=== PATIENT | female | born 1935 | race Caucasian/White ===

== ENCOUNTER → 2018-01-01 | Outpatient (CLI) | payer MEDICARE, OTHER ==
--- NOTE | 2018-01-01 09:03 | MR ---
EXAMINATION TYPE: MR brain wo con DATE OF EXAM: 01/01/2018 8:50 AM. COMPARISON: NONE. HISTORY: Sharp pain the base of the skull. Technique: Multiplanar, multiecho imaging of the brain was obtained without intravenous contrast. FINDINGS: There is a 12.8 x 7.3 x 8.6 mm lesion anterior to the medulla in the midline, extending sli ghtly towards the right. This does not appear vascular. This is high in signal on both T1 and T2-weig hted images. This lesion demonstrates restricted diffusion. Midline structures are otherwise unremarkable. There is a normal craniocervical junction. There are normal vascular flow voids. The orbits are normal. There is no evidence of a CP angle mass lesion. There is a combination of punctate and confluent periventricular white matter changes compatible with a combination of small vessel disease and chronic ischemic change. There is no mass effect, midline shift or intracranial blood. IMPRESSION: 1. 12.8 X 7.3 X 0.6 MM LESION ANTERIOR TO THE MEDULLA IN THE MIDLINE EXTENDING SLIGHTLY TOWARDS THE R IGHT. THIS IS OF QUESTIONABLE ETIOLOGY. 2. BOTH PUNCTATE AND CONFLUENT PERIVENTRICULAR WHITE MATTER CHANGE, LIKELY ON THE BASIS OF SMALL VESS EL DISEASE AND CHRONIC ISCHEMIC CHANGE. 3. POSTCONTRAST MRI OF THE BRAIN IS SUGGESTED.
== END | disposition home or self-care (01) ==
LOC: RADMRIMAIN 07:54
PROVIDERS: ATTEND Family Medicine
DX: G93.9 Disorder of brain, unspecified (principal); R90.82 White matter disease, unspecified
CPT/HCPCS: 70551

== ENCOUNTER → 2019-04-26 | Outpatient (CLI) | payer MEDICARE ==
[2019-04-26 16:11] LABS: HCT 45.8 % (34.0-46.0); HGB 14.9 gm/dL (11.4-16.0); MCH 29.7 pg (25.0-35.0); MCHC 32.5 g/dL (31.0-37.0); MCV 91.3 fL (80.0-100.0); Mean Platelet Volume 6.5; Platelet Count 318 k/uL (150-450); RBC 5.02 m/uL (3.80-5.40); RDW 13.1 % (11.5-15.5); WBC 9.1 k/uL (3.8-10.6)
[2019-04-27 00:15] LABS: African American GFR (CKD) 49.1 (60.0-200.0); Albumin 4.6 g/dL (3.80-4.90); Albumin/Globulin Ratio 1.84 (1.60-3.17); Anion Gap 12.7 mmol/L (4.00-12.00); BUN/Creat Ratio 30.83 Ratio (12.00-20.00); Calcium 9.9 mg/dL (8.7-10.3); Carbon Dioxide 21.3 mmol/L (21.6-31.8); Globulin 2.5 g/dL (1.6-3.3); Non-African American GFR(CKD) 42.3 (60.0-200.0); Potassium 4.1 mmol/L (3.5-5.5); Total Bilirubin 0.2 mg/dL (0.2-1.2); Total Protein 7.1 g/dL (6.2-8.2)
== END | disposition home or self-care (01) ==
LOC: LABWHC1 15:19
PROVIDERS: ATTEND Nurse Practitioner Adult Health
DX: I10 Essential (primary) hypertension (principal); R06.02 Shortness of breath; R53.83 Other fatigue
CPT/HCPCS: 36415; 80053; 85027

== ENCOUNTER 2020-04-15 09:01 | Observation (INO) | payer MEDICARE ==
[2020-04-15] MEDS ORDERED: SODIUM CHLORIDE 0.9% 500 ML 500 ML IV STA (09:40)
--- NOTE | 2020-04-15 09:54 | ED ---
General Adult HPI - General Chief complaint: Dizziness Stated complaint: Dizzy/weakness Time Seen by Provider: 04/15/20 09:05 Source: patient, RN notes reviewed, old records reviewed Mode of arrival: wheelchair Limitations: physical limitation - History of Present Illness Initial comments: This is an 84-year-old female who presents emergency Department with a complaint of near syncope. Patient states she woke up this morning felt very lightheaded and it definitely got worse with standing up so she sat down it made it a little bit better but didn't go away so she stood back up and she said definitely standing back up made it worse per patient states she was not dizzy or if she did not feel as though she or the room was spinning it was definitely more a feeling of she was going to pass out. Patient denies headache patient denies any numbness weakness. Patient denies any shortness of breath. Patient denies any palpitations. Patient denies any recent fever chills or cough. Patient states the last month or so she hasn't felt quite right but no specific complaint. Patient states she definitely felt normal yesterday. Patient denies any chest pain or abdominal pain. - Related Data Home Medications Medication Instructions Recorded Confirmed Atorvastatin [Lipitor] 80 mg PO HS 10/21/15 04/15/20 Levothyroxine Sodium [Synthroid] 112 mcg PO DAILY 10/21/15 04/15/20 Metoprolol Succinate (ER) [Toprol 25 mg PO BID 10/21/15 04/15/20 Xl] Multivit with Calcium,Iron,Min 1 tab PO DAILY 10/21/15 04/15/20 [Women's Daily Multivitamin] Olmesartan/Hydrochlorothiazide 1 tab PO DAILY 10/21/15 04/15/20 [Benicar Hct 40-25 mg Tablet] Oxybutynin Xl [Ditropan Xl] 5 mg PO DAILY 10/21/15 04/15/20 amLODIPine [Norvasc] 5 mg PO DAILY 10/21/15 04/15/20 buPROPion HCL [Wellbutrin XL] 300 mg PO DAILY 10/21/15 04/15/20 Ergocalciferol (Vitamin D2) 50,000 unit PO FR 04/15/20 04/15/20 [Drisdol] Mirtazapine [Remeron] 15 mg PO HS 04/15/20 04/15/20 Temazepam [Restoril] 15 mg PO HS 04/15/20 04/15/20 Vascepa 1 Gm Capsule 2 gm PO BID 04/15/20 04/15/20 Allergies Allergy/AdvReac Type Severity Reaction Status Date / Time Penicillins Allergy Rash/Hives Verified 04/15/20 10:18 Review of Systems ROS Statement: Those systems with pertinent positive or pertinent negative responses have been documented in the HPI. ROS Other: All systems not noted in ROS Statement are negative. Past Medical History Past Medical History: Coronary Artery Disease (CAD), Hyperlipidemia, Hypertension, Osteoarthritis (OA), Seizure Disorder, Thyroid Disorder Additional Past Medical History / Comment(s): Last seizure 25 yr ago, Hypoglycemic History of Any Multi-Drug Resistant Organisms: None Reported Past Surgical History: Section, Heart Catheterization With Stent, Joint Replacement Additional Past Surgical History / Comment(s): C/S x 2, right carotid enda rterectomy, TOTAL RIGHT KNEE Past Anesthesia/Blood Transfusion Reactions: No Reported Reaction Date of Last Stent Placement:: 2005 Past Psychological History: No Psychological Hx Reported Smoking Status: Never smoker Past Alcohol Use History: None Reported Past Drug Use History: None Reported - Past Family History Mother Family Medical History: No Reported History General Exam - General Exam Comments Initial Comments: GENERAL: Patient is well-developed and well-nourished. Patient is nontoxic and well- hydrated and is in mild distress. ENT: Neck is soft and supple. No significant lymphadenopathy is noted. Oropharynx is clear. Moist mucous membranes. Neck has full range of motion without eliciting any pain. EYES: The sclera were anicteric and conjunctiva were pink and moist. Extraocular movements were intact and pupils were equal round and reactive to light. Eyelids were unremarkable. PULMONARY: Unlabored respirations. Good breath sounds bilaterally. No audible rales rhonchi or wheezing was noted. CARDIOVASCULAR: There is a regular rate and rhythm without any murmurs gallops or rubs. ABDOMEN: Soft and nontender with normal bowel sounds. SKIN: Skin is clear with no lesions or rashes and otherwise unremarkable. NEUROLOGIC: Patient is alert and oriented x3. Cranial nerves II through XII are grossly intact. Motor and sensory are also intact. Normal speech, volume and content. Symmetrical smile. MUSCULOSKELETAL: Normal extremities with adequate strength and full range of motion. LYMPHATICS: No significant lymphadenopathy is noted PSYCHIATRIC: Normal psychiatric evaluation. Limitations: physical limitation Course Vital Signs 04/15/20 04/15/20 04/15/20 09:08 09:28 09:48 Temperature 98.3 F Pulse Rate 76 75 72 Pulse Rate [ Bingo Worker ] Respiratory 18 18 18 Rate Blood Pressure 201/113 202/103 177/94 Blood Pressure [Right Arm Sitting] Blood Pressure [Right Arm Standing] Blood Pressure [Right Arm Supine] O2 Sat by Pulse 97 98 97 Oximetry 04/15/20 04/15/20 04/15/20 09:49 09:50 10:53 Temperature Pulse Rate 70 Pulse Rate [ 73 76 Bingo Worker ] Respiratory 18 Rate Blood Pressure 155/64 Blood Pressure 188/100 [Right Arm Sitting] Blood Pressure 187/101 [Right Arm Standing] Blood Pressure 177/94 [Right Arm Supine] O2 Sat by Pulse 94 L Oximetry Medical Decision Making - Medical Decision Making EKG shows normal sinus rhythm at 73 bpm [place] interval is 182 QRS is 82 QT is 398 QTC is 438. EKG shows no ST segment elevation or depression. Chest x-ray shows no acute abnormality. Patient was feeling at her baseline while in bed which she did have significantly near syncopal episodes today and so I spoke with Dr. Narayan and he was in agreement with bringing the patient and having her see cardiology. - Lab Data Result diagrams: 04/15/20 09:24 04/15/20 09:24 Lab Results 04/15/20 04/15/20 04/15/20 Range/Units 09:24 09:24 09:24 WBC 7.7 (3.8-10.6) k/uL RBC 4.93 (3.80-5.40) m/uL Hgb 14.6 (11.4-16.0) gm/dL Hct 44.6 (34.0-46.0) % MCV 90.5 (80.0-100.0) fL MCH 29.7 (25.0-35.0) pg MCHC 32.8 (31.0-37.0) g/dL RDW 12.9 (11.5-15.5) % Plt Count 288 (150-450) k/uL Neutrophils % 67 % Lymphocytes % 21 % Monocytes % 6 % Eosinophils % 3 % Basophils % 1 % Neutrophils # 5.2 (1.3-7.7) k/uL Lymphocytes # 1.6 (1.0-4.8) k/uL Monocytes # 0.5 (0-1.0) k/uL Eosinophils # 0.2 (0-0.7) k/uL Basophils # 0.1 (0-0.2) k/uL PT 9.7 (9.0-12.0) sec INR 0.9 (<1.2) APTT 24.1 (22.0-30.0) sec Sodium 136 L (137-145) mmol/L Potassium 4.9 (3.5-5.1) mmol/L Chloride 102 (98-107) mmol/L Carbon Dioxide 25 (22-30) mmol/L Anion Gap 9 mmol/L BUN 31 H (7-17) mg/dL Creatinine 1.08 H (0.52-1.04) mg/dL Est GFR (CKD-EPI)AfAm 55 (>60 ml/min/1.73 sqM) Est GFR (CKD-EPI)NonAf 48 (>60 ml/min/1.73 sqM) Glucose 134 H (74-99) mg/dL Plasma Lactic Acid Nikolay (0.7-2.0) mmol/L Calcium 9.7 (8.4-10.2) mg/dL Magnesium (1.6-2.3) mg/dL Total Bilirubin 0.8 (0.2-1.3) mg/dL AST 49 H (14-36) U/L ALT 33 (4-34) U/L Alkaline Phosphatase 107 (38-126) U/L Troponin I (0.000-0.034) ng/mL Total Protein 8.4 H (6.3-8.2) g/dL Albumin 4.8 (3.5-5.0) g/dL Urine Color Urine Appearance (Clear) Urine pH (5.0-8.0) Ur Specific [place] (1.001-1.035) Urine Protein (Negative) Urine Glucose (UA) (Negative) Urine Ketones (Negative) Urine Blood (Negative) Urine Nitrite (Negative) Urine Bilirubin (Negative) Urine Urobilinogen (<2.0) mg/dL Ur Leukocyte Esterase (Negative) Urine WBC (0-5) /hpf Urine Bacteria (None) /hpf 07/20/20 07/20/20 07/20/20 Range/Units 09:24 09:24 09:43 WBC (3.8-10.6) k/uL RBC (3.80-5.40) m/uL Hgb (11.4-16.0) gm/dL Hct (34.0-46.0) % MCV (80.0-100.0) fL MCH (25.0-35.0) pg MCHC (31.0-37.0) g/dL RDW (11.5-15.5) % Plt Count (150-450) k/uL Neutrophils % % Lymphocytes % % Monocytes % % Eosinophils % % Basophils % % Neutrophils # (1.3-7.7) k/uL Lymphocytes # (1.0-4.8) k/uL Monocytes # (0-1.0) k/uL Eosinophils # (0-0.7) k/uL Basophils # (0-0.2) k/uL PT (9.0-12.0) sec INR (<1.2) APTT (22.0-30.0) sec Sodium (137-145) mmol/L Potassium (3.5-5.1) mmol/L Chloride (98-107) mmol/L Carbon Dioxide (22-30) mmol/L Anion Gap mmol/L BUN (7-17) mg/dL Creatinine (0.52-1.04) mg/dL Est GFR (CKD-EPI)AfAm (>60 ml/min/1.73 sqM) Est GFR (CKD-EPI)NonAf (>60 ml/min/1.73 sqM) Glucose (74-99) mg/dL Plasma Lactic Acid Nikolay (0.7-2.0) mmol/L Calcium (8.4-10.2) mg/dL Magnesium 2.0 (1.6-2.3) mg/dL Total Bilirubin (0.2-1.3) mg/dL AST (14-36) U/L ALT (4-34) U/L Alkaline Phosphatase (38-126) U/L Troponin I <0.012 (0.000-0.034) ng/mL Total Protein (6.3-8.2) g/dL Albumin (3.5-5.0) g/dL Urine Color Yellow Urine Appearance Clear (Clear) Urine pH 6.0 (5.0-8.0) Ur Specific [place] 1.010 (1.001-1.035) Urine Protein Trace H (Negative) Urine Glucose (UA) Negative (Negative) Urine Ketones Negative (Negative) Urine Blood Negative (Negative) Urine Nitrite Negative (Negative) Urine Bilirubin Negative (Negative) Urine Urobilinogen <2.0 (<2.0) mg/dL Ur Leukocyte Esterase Moderate H (Negative) Urine WBC 6 H (0-5) /hpf Urine Bacteria Rare H (None) /hpf 04/15/20 Range/Units 09:47 WBC (3.8-10.6) k/uL RBC (3.80-5.40) m/uL Hgb (11.4-16.0) gm/dL Hct (34.0-46.0) % MCV (80.0-100.0) fL MCH (25.0-35.0) pg MCHC (31.0-37.0) g/dL RDW (11.5-15.5) % Plt Count (150-450) k/uL Neutrophils % % Lymphocytes % % Monocytes % % Eosinophils % % Basophils % % Neutrophils # (1.3-7.7) k/uL Lymphocytes # (1.0-4.8) k/uL Monocytes # (0-1.0) k/uL Eosinophils # (0-0.7) k/uL Basophils # (0-0.2) k/uL PT (9.0-12.0) sec INR (<1.2) APTT (22.0-30.0) sec Sodium (137-145) mmol/L Potassium (3.5-5.1) mmol/L Chloride (98-107) mmol/L Carbon Dioxide (22-30) mmol/L Anion Gap mmol/L BUN (7-17) mg/dL Creatinine (0.52-1.04) mg/dL Est GFR (CKD-EPI)AfAm (>60 ml/min/1.73 sqM) Est GFR (CKD-EPI)NonAf (>60 ml/min/1.73 sqM) Glucose (74-99) mg/dL Plasma Lactic Acid Nikolay 1.3 (0.7-2.0) mmol/L Calcium (8.4-10.2) mg/dL Magnesium (1.6-2.3) mg/dL Total Bilirubin (0.2-1.3) mg/dL AST (14-36) U/L ALT (4-34) U/L Alkaline Phosphatase (38-126) U/L Troponin I (0.000-0.034) ng/mL Total Protein (6.3-8.2) g/dL Albumin (3.5-5.0) g/dL Urine Color Urine Appearance (Clear) Urine pH (5.0-8.0) Ur Specific [place] (1.001-1.035) Urine Protein (Negative) Urine Glucose (UA) (Negative) Urine Ketones (Negative) Urine Blood (Negative) Urine Nitrite (Negative) Urine Bilirubin (Negative) Urine Urobilinogen (<2.0) mg/dL Ur Leukocyte Esterase (Negative) Urine WBC (0-5) /hpf Urine Bacteria (None) /hpf Disposition Clinical Impression: Near syncope Disposition: ADMITTED IP TO THIS HOSP Referrals: Shreyas Narayan DO [Primary Care Provider] - 1-2 days Time of Disposition: 11:44
[2020-04-15 09:57] LABS: Basophils # (A) 0.1 k/uL (0-0.2); Basophils % (A) 1 %; Eosinophils # (A) 0.2 k/uL (0-0.7); Eosinophils % (A) 3 %; HCT 44.6 % (34.0-46.0); HGB 14.6 gm/dL (11.4-16.0); Lymphocytes # (A) 1.6 k/uL (1.0-4.8); Lymphocytes % (A) 21 %; MCH 29.7 pg (25.0-35.0); MCHC 32.8 g/dL (31.0-37.0); MCV 90.5 fL (80.0-100.0); Mean Platelet Volume 7.6; Monocytes # (A) 0.5 k/uL (0-1.0); Monocytes % (A) 6 %; Neutrophils # (A) 5.2 k/uL (1.3-7.7); Neutrophils % (A) 67 %; Platelet Count 288 k/uL (150-450); RBC 4.93 m/uL (3.80-5.40); RDW 12.9 % (11.5-15.5); WBC 7.7 k/uL (3.8-10.6)
[2020-04-15 10:09] LABS: Calcium 9.7 mg/dL (8.4-10.2); Total Bilirubin 0.8 mg/dL (0.2-1.3)
[2020-04-15 10:09] LABS: Appearance,Urine Clear (Clear); Bacteria,Urine Rare /hpf; Bilirubin,Urine Negative (Negative); Blood,Urine Negative (Negative); Color,Urine Yellow; Glucose,Urine (UA) Negative (Negative); Ketones,Urine Negative (Negative); Leukocyte Esterase,Urine Moderate (Negative); Nitrite,Urine Negative (Negative); Protein,Urine Trace (Negative); Urobilinogen,Urine <2.0 mg/dL (<2.0); WBC,Urine 6 /hpf (0-5)
--- NOTE | 2020-04-15 10:11 | XR ---
EXAMINATION TYPE: XR chest 2V DATE OF EXAM: 04/15/2020 COMPARISON: NONE HISTORY: Weakness and syncope TECHNIQUE: Frontal and lateral views of the chest are obtained. FINDINGS: There is no focal air space opacity, pleural effusion, or pneumothorax seen. The cardiac silhouette size is within normal limits. The osseous structures are intact. There are overlying car diac leads. Aorta is dense. There is thoracic spondylosis with flowing anterior osteophytes with rela tive preservation of the disc spaces, possible underlying diffuse idiopathic skeletal hyperostosis IMPRESSION: No acute cardiopulmonary process.
[2020-04-15 10:12] LABS: Albumin 4.8 g/dL (3.5-5.0); Potassium 4.9 mmol/L (3.5-5.1); Total Protein 8.4 g/dL (6.3-8.2)
[2020-04-15 10:29] LABS: INR 0.9 (<1.2); Partial Thromboplastin Time 24.1 sec (22.0-30.0); Prothrombin Time 9.7 sec (9.0-12.0)
[2020-04-15] MEDS ORDERED: SODIUM CHLORIDE 0.9% 1,000 ML IV ONE (11:45)
[2020-04-15] MEDS: METOPROLOL SUCCINATE (ER) 25 MG TAB.ER.24H PO SCH (20:47)
[2020-04-15] MEDS ORDERED: MIRTAZAPINE 15 MG TAB PO SCH (21:00)
[2020-04-15] MEDS ORDERED: ATORVASTATIN 80 MG TAB PO SCH (21:00)
[2020-04-15] MEDS ORDERED: TEMAZEPAM 15 MG CAP PO SCH (21:00)
[2020-04-15] MEDS: VASCEPA PO SCH (22:44)
[2020-04-16] MEDS ORDERED: LEVOTHYROXINE 112 MCG TAB PO SCH (06:30)
[2020-04-16 08:19] VITALS: RESP 16
[2020-04-16] MEDS: METOPROLOL SUCCINATE (ER) 25 MG TAB.ER.24H PO SCH (08:28)
[2020-04-16] MEDS: VASCEPA PO SCH (08:31)
[2020-04-16] MEDS ORDERED: OXYBUTYNIN XL 5 MG TAB.ER.24 PO SCH (09:00)
[2020-04-16] MEDS ORDERED: buPROPion XL 300 MG TAB.ER.24H PO SCH (09:00)
[2020-04-16] MEDS ORDERED: LOSARTAN 50 MG TAB PO SCH (09:00)
[2020-04-16] MEDS ORDERED: amLODIPine 5 MG TAB PO SCH ×2 (09:00)
[2020-04-16] MEDS ORDERED: hydroCHLOROthiazide 25 MG TAB PO SCH (09:00)
[2020-04-16] MEDS ORDERED: ACETAMINOPHEN TAB 325 MG TAB PO PRN (10:07)
--- NOTE | 2020-04-16 10:07 | P.HPIM ---
History of Present Illness H&P Date: 04/16/20 Chief Complaint: Near-syncope This is an 84-year-old female with history of CAD, cardiac catheterization with stent, hyperlipidemia, hypertension, osteoarthritis, seizure disorder with last seizure reported 25 years ago, thyroid disorder, former smoker multiple other medical issues, presented to the ER with complaints of near syncope. Reports she hasn't felt like herself for nearly a month, "feels tired and sluggish" Patient reports upon awakening yesterday morning felt lightheaded, as if she would possibly pass out, worsened with standing.denies dizziness, no room spi nning. Denies diaphoresis post-event. Denies chest pain, palpitations or shortness of breath. Denies fevers, cough or chills. Denies syncope, denies incontinence, denies any fall or trauma. Denies focal deficits, denies headache, denies increased weakness or numbness. Denies any nausea ,vomiting diarrhea or constipation. Denies abdominal pain. Patient also reports having significant anxiety related to Covid pandemic-constantly worried about her daughter who is a respiratory therapist. Denies exertional activity. Reports consistent compliance with medical regimen .On admission patient's blood pressure uncontrolled with systolic blood pressure of 201/113, pulse 76, respiratory rate 18, maintaining O2 sats of high 90s on room air. Blood pressure currently better controlled down to 131/74.Chest x-ray reporting no acute cardiopulmonary process. EKG normal sinus rhythm, troponins negative 1. Hematology/coagulation unremarkable. BUN/creatinine 31/1.08-Baseline AST minimally elevated at 49. Afebrile, normal WBC. Urine reporting rare bacteria, moderately high leukocytes, and ABC's of 6 negative for nitrates. Review of Systems ROS Statement: Those systems with pertinent positive or pertinent negative responses have been documented in the HPI. ROS Other: All systems not noted in ROS Statement are negative. Past Medical History Past Medical History: Coronary Artery Disease (CAD), Hyperlipidemia, Hypertension, Osteoarthritis (OA), Seizure Disorder, Thyroid Disorder Additional Past Medical History / Comment(s): Last seizure 25 yr ago, H ypoglycemic History of Any Multi-Drug Resistant Organisms: None Reported Past Surgical History: Section, Heart Catheterization With Stent, Joint Replacement Additional Past Surgical History / Comment(s): C/S x 2, right carotid endarterectomy, TOTAL RIGHT KNEE Past Anesthesia/Blood Transfusion Reactions: No Reported Reaction Date of Last Stent Placement:: 2005 Smoking Status: Former smoker - Past Family History Mother Family Medical History: No Reported History Medications and Allergies Home Medications Medication Instructions Recorded Confirmed Type Atorvastatin [Lipitor] 80 mg PO HS 10/21/15 04/15/20 History Levothyroxine Sodium [Synthroid] 112 mcg PO DAILY 10/21/15 04/15/20 History Metoprolol Succinate (ER) [Toprol 25 mg PO BID 10/21/15 04/15/20 History Xl] Multivit with Calcium,Iron,Min 1 tab PO DAILY 10/21/15 04/15/20 History [Women's Daily Multivitamin] Olmesartan/Hydrochlorothiazide 1 tab PO DAILY 10/21/15 04/15/20 History [Benicar Hct 40-25 mg Tablet] Oxybutynin Xl [Ditropan Xl] 5 mg PO DAILY 10/21/15 04/15/20 History amLODIPine [Norvasc] 5 mg PO DAILY 10/21/15 04/15/20 History buPROPion HCL [Wellbutrin XL] 300 mg PO DAILY 10/21/15 04/15/20 History Ergocalciferol (Vitamin D2) 50,000 unit PO FR 04/15/20 04/15/20 History [Drisdol] Mirtazapine [Remeron] 15 mg PO HS 04/15/20 04/15/20 History Temazepam [Restoril] 15 mg PO HS 04/15/20 04/15/20 History Vascepa 1 Gm Capsule 2 gm PO BID 04/15/20 04/15/20 History Allergies Allergy/AdvReac Type Severity Reaction Status Date / Time Penicillins Allergy Rash/Hives Verified 04/15/20 10:18 Physical Exam Vitals: Vital Signs Temp Pulse Pulse Resp BP BP BP 04/16/20 03:20 97.6 F 67 18 131/74 04/15/20 22:00 121/70 04/15/20 19:40 98.3 F 72 16 179/94 04/15/20 13:10 98.0 F 66 16 181/83 04/15/20 13:06 98.3 F 70 18 155/64 04/15/20 10:53 70 18 155/64 04/15/20 09:50 76 188/100 04/15/20 09:49 73 04/15/20 09:48 72 18 177/94 04/15/20 09:28 75 18 202/103 04/15/20 09:08 98.3 F 76 18 201/113 BP BP Pulse Ox 04/16/20 03:20 97 04/15/20 22:00 04/15/20 19:40 96 04/15/20 13:10 96 04/15/20 13:06 94 L 04/15/20 10:53 94 L 04/15/20 09:50 187/101 04/15/20 09:49 177/94 04/15/20 09:48 97 04/15/20 09:28 98 04/15/20 09:08 97 Intake and Output 04/15/20 04/16/20 04/16/20 22:59 06:59 14:59 Output Total 1 1 Balance -1 -1 Output: Urine 1 1 Other: Voiding Method Toilet Toilet # Voids 1 PHYSICAL EXAM: VITAL SIGNS: As above GENERAL: Sitting up in bed, no acute distress. HEENT: Conjunctivae normal. eyes normal. Oral mucosa moist. NECK: No JVD. No thyroid enlargement. No LNs CARDIOVASCULAR: S1, S2 regular.. No murmur RESPIRATION: Breath sounds diminished in the bases. No rhonchi or crackles. No bronchial breathing. ABDOMEN: Soft, nontender . No guarding. no masses palpable. No ascites, No hepatosplenomegaly.Bowel sounds heard. LEGS: No edema. no swelling PSYCHIATRY: Alert and oriented X3, mood and affect normal. NERVOUS SYSTEM: Cranial N 2-12 grossly normal. Moves all 4 limbs. Diffuse weakness, No focal deficits. Strength and sensation grossly intact.. Skin: no rash Lymphatic system. No LN neck axilla. Results CBC & Chem 7: 04/15/20 09:24 04/15/20 09:24 Labs: Abnormal Lab Results - Last 24 Hours (Table) 04/15/20 04/15/20 Range/Units 09:24 09:43 Sodium 136 L (137-145) mmol/L BUN 31 H (7-17) mg/dL Creatinine 1.08 H (0.52-1.04) mg/dL Glucose 134 H (74-99) mg/dL AST 49 H (14-36) U/L Total Protein 8.4 H (6.3-8.2) g/dL Urine Protein Trace H (Negative) Ur Leukocyte Esterase Moderate H (Negative) Urine WBC 6 H (0-5) /hpf Urine Bacteria Rare H (None) /hpf Thrombosis Risk Factor Assmnt - Choose All That Apply Any of the Below Risk Factors Present?: No Other Risk Factors: Yes Each Risk Factor Represents 3 Points: Age 75 years or older Thrombosis Risk Factor Assessment Total Risk Factor Score: 3 Thrombosis Risk Factor Assessment Level: Moderate Risk Assessment and Plan Assessment: Near-vasovagal syncope, possibly secondary to uncontrolled accelerated hypertension ,anxiety,workup in progress Accelerated hypertension Anxiety Chronic depression on Wellbutrin CAD, history of heart catheterization with stent Hyperlipidemia Hypertension Osteoarthritis Seizure disorder with last seizure 25 years ago Hypothyroidism Former smoker Plan: Continue on current medication regime ,monitoring and symptomatic treatment. Gentle IV fluid hydration. Orthostatic vital signs ordered. Home meds including antihypertensives have been reviewed and resumed. Cardiology consult in place with recommendations pending. States echo and carotid ultrasound recently done with Dr. Long at his office, obtaining records. Patient states she had been on Ativan for many years,was weaned off approximately 10 years ago, requesting something for anxiety. We'll initiate a half dose Lexapro at 5 mg daily in addition to Wellbutrin. The impression and plan of care has been dictated as directed. : I performed a history and examination of this patient, discussed the same with the dictator. I agree with the dictator's note ,documented as a scribe. Any additional findings or plans will be noted.
[2020-04-16] MEDS ORDERED: ESCITALOPRAM 5 MG TAB PO SCH (10:15)
--- NOTE | 2020-04-16 10:53 | P.CRDCN ---
History of Present Illness History of present illness: HISTORY OF PRESENTING ILLNESS This is a pleasant 84-year-old female past medical history significant for peripheral vascular disease status post right carotid endarterectomy and s tent placement, hypertension, dyslipidemia and seizure disorder. She follows in the office with Dr. Long. We have been asked to see in consultation for near syncope. She states for the previous few months she has not been feeling well. She's been taking frequent naps which she had not done previously. She feels overall quite anxious since Covid began. History morning she woke up had a couple coffee, cleaned her kal litter and took out her garbage. She was attempting to take a shower when she started feeling very lightheaded with a headache. She states she felt like she was going to pass out. She ate hard- boiled egg to see if it would help. Her symptoms did not improve. She held onto the wall to walk herself to her chair and sat down. She called her daughter. Her daughter came over to check her blood pressure which was quite elevated. She then presented to the emergency room where her blood pressure was 201/113. She denies symptoms of chest pain, shortness of breath, palpitations, nausea, vomiting or diaphoresis. DIAGNOSTICS EKG reveals sinus mechanism with no acute ST or T wave abnormalities noted. Chest xray negative for an acute cardiopulmonary process. Laboratory reviewed, CBC unremarkable, sodium 136, potassium 4.9, creatinine 1.08, magnesium 2.0, troponin negative 1. Current cardiac medications include atorvastatin 80 mg at bedtime, Toprol 25 mg twice a day, losartan/HCTZ 40/25 mg daily and amlodipine 5 mg daily. Most recent cardiac catheterization in 2005 revealed normal ejection fraction with no flow-limiting lesions. Most recent echocardiogram obtained in the office June 2019 revealed preserved LV systolic function with ejection fraction 60%, moderate TR and mild to moderate MR noted. Most recent stress test performed in the office April 2019 was negative for reversible cardiac ischemia. Most recent carotid Doppler performed in the office February 2019 revealed 16-49% stenosis bilaterally. REVIEW OF SYSTEMS At the time of my exam: CONSTITUTIONAL: Denies fever or chills. CARDIOVASCULAR: Denies chest pain, shortness of breath, orthopnea, PND or palpitations. RESPIRATORY: Denies cough. GASTROINTESTINAL: Denies abdominal pain, diarrhea, constipation, nausea or vomiting. MUSCULOSKELETAL: Denies myalgias. NEUROLOGIC: Denies numbness, tingling or weakness. ENDOCRINE: Denies fatigue, weight change, polydipsia or polyurina. GENITOURINARY: Denies burning, hematuria or urgency with micturation. HEMATOLOGIC: Denies history of anemia or bleeding. PHYSICAL EXAMINATION Blood pressure 147/76 heart rate 70 afebrile and maintaining oxygen saturation on room air. CONSTITUTIONAL: No apparent distress. HEENT: Head is normocephalic. Pupils are equal, round. Sclerae anicteric. Mucous membranes of the mouth are moist. No JVD. No carotid bruit. CHEST EXAMINATION: Lungs are clear to auscultation. No chest wall tenderness is noted on palpation or with deep breathing. HEART EXAMINATION: Regular rate and rhythm. S1, S2 heard. Systolic ejection murmur at the left sternal border, no gallops or rub. ABDOMEN: Soft, nontender. Positive bowel sounds. EXTREMITIES: 2+ peripheral pulses, no lower extremity edema and no calf tenderness. NEUROLOGIC EXAMINATION: Patient is awake, alert and oriented x3. ASSESSMENT Near syncope Headache Hypertension, uncontrolled Dyslipidemia History of seizure disorder Peripheral vascular disease status post carotid endarterectomy PLAN Obtain 2-D echocardiogram and Doppler study to assess cardiac structure and function. Telemetry tracings unremarkable for an acute arrhythmia. The patient states she has had a stent in her heart in the past however there was a normal coronary angiography in 2005 revealing no flow limiting lesions. No other documented catheterizations. Ongoing medical management and evaluation. If echo is normal she can be discharged home to follow up with Dr. oLng in the office in 2 weeks. Thank you kindly for this consultation. Nurse Practitioner note has been reviewed, I agree with a documented findings and plan of care. Patient was seen and examined. Past Medical History Past Medical History: Coronary Artery Disease (CAD), Hyperlipidemia, Hypertension, Osteoarthritis (OA), Seizure Disorder, Thyroid Disorder Additional Past Medical History / Comment(s): Last seizure 25 yr ago, Hypoglycemic History of Any Multi-Drug Resistant Organisms: None Reported Past Surgical History: Section, Heart Catheterization With Stent, Joint Replacement Additional Past Surgical History / Comment(s): C/S x 2, right carotid endarte rectomy, TOTAL RIGHT KNEE Past Anesthesia/Blood Transfusion Reactions: No Reported Reaction Date of Last Stent Placement:: 2005 Smoking Status: Former smoker - Past Family History Mother Family Medical History: No Reported History Medications and Allergies Home Medications Medication Instructions Recorded Confirmed Type Atorvastatin [Lipitor] 80 mg PO HS 10/21/15 04/15/20 History Levothyroxine Sodium [Synthroid] 112 mcg PO DAILY 10/21/15 04/15/20 History Metoprolol Succinate (ER) [Toprol 25 mg PO BID 10/21/15 04/15/20 History Xl] Multivit with Calcium,Iron,Min 1 tab PO DAILY 10/21/15 04/15/20 History [Women's Daily Multivitamin] Olmesartan/Hydrochlorothiazide 1 tab PO DAILY 10/21/15 04/15/20 History [Benicar Hct 40-25 mg Tablet] Oxybutynin Xl [Ditropan Xl] 5 mg PO DAILY 10/21/15 04/15/20 History amLODIPine [Norvasc] 5 mg PO DAILY 10/21/15 04/15/20 History buPROPion HCL [Wellbutrin XL] 300 mg PO DAILY 10/21/15 04/15/20 History Ergocalciferol (Vitamin D2) 50,000 unit PO FR 04/15/20 04/15/20 History [Drisdol] Mirtazapine [Remeron] 15 mg PO HS 04/15/20 04/15/20 History Temazepam [Restoril] 15 mg PO HS 04/15/20 04/15/20 History Vascepa 1 Gm Capsule 2 gm PO BID 04/15/20 04/15/20 History Allergies Allergy/AdvReac Type Severity Reaction Status Date / Time Penicillins Allergy Rash/Hives Verified 04/15/20 10:18 Physical Exam Vitals: Vital Signs Temp Pulse Pulse Resp BP BP BP 04/16/20 03:20 97.6 F 67 18 131/74 04/15/20 22:00 121/70 04/15/20 19:40 98.3 F 72 16 179/94 04/15/20 13:10 98.0 F 66 16 181/83 04/15/20 13:06 98.3 F 70 18 155/64 04/15/20 10:53 70 18 155/64 04/15/20 09:50 76 188/100 04/15/20 09:49 73 04/15/20 09:48 72 18 177/94 04/15/20 09:28 75 18 202/103 04/15/20 09:08 98.3 F 76 18 201/113 BP BP Pulse Ox 04/16/20 03:20 97 04/15/20 22:00 04/15/20 19:40 96 04/15/20 13:10 96 04/15/20 13:06 94 L 04/15/20 10:53 94 L 04/15/20 09:50 187/101 04/15/20 09:49 177/94 04/15/20 09:48 97 04/15/20 09:28 98 04/15/20 09:08 97 Intake and Output 04/15/20 04/16/20 04/16/20 22:59 06:59 14:59 Output Total 1 1 Balance -1 -1 Output: Urine 1 1 Other: Voiding Method Toilet Toilet # Voids 1 Results 04/15/20 09:24 04/15/20 09:24 Cardiac Enzymes 04/15/20 04/15/20 Range/Units 09:24 09:24 AST 49 H (14-36) U/L Troponin I <0.012 (0.000-0.034) ng/mL Coagulation 04/15/20 Range/Units 09:24 PT 9.7 (9.0-12.0) sec APTT 24.1 (22.0-30.0) sec CBC 04/15/20 Range/Units 09:24 WBC 7.7 (3.8-10.6) k/uL RBC 4.93 (3.80-5.40) m/uL Hgb 14.6 (11.4-16.0) gm/dL Hct 44.6 (34.0-46.0) % Plt Count 288 (150-450) k/uL Comprehensive Metabolic Panel 04/15/20 Range/Units 09:24 Sodium 136 L (137-145) mmol/L Potassium 4.9 (3.5-5.1) mmol/L Chloride 102 (98-107) mmol/L Carbon Dioxide 25 (22-30) mmol/L BUN 31 H (7-17) mg/dL Creatinine 1.08 H (0.52-1.04) mg/dL Glucose 134 H (74-99) mg/dL Calcium 9.7 (8.4-10.2) mg/dL AST 49 H (14-36) U/L ALT 33 (4-34) U/L Alkaline Phosphatase 107 (38-126) U/L Total Protein 8.4 H (6.3-8.2) g/dL Albumin 4.8 (3.5-5.0) g/dL Current Medications Generic Name Dose Route Start Last Admin Trade Name Freq PRN Reason Stop Dose Admin Amlodipine Besylate 5 mg 04/16/20 09:00 Norvasc PO BID ADONIS Atorvastatin Calcium 80 mg 04/15/20 21:00 04/15/20 20:47 Lipitor PO 80 mg HS ADONIS Administration Bupropion HCl 300 mg 04/16/20 09:00 Wellbutrin Xl PO DAILY [facility] Hydrochlorothiazide 25 mg 04/16/20 09:00 Hydrodiuril PO DAILY [facility] Levothyroxine Sodium 112 mcg 04/16/20 06:30 04/16/20 06:43 Synthroid PO 112 mcg 0630 ADONIS Administration Losartan Potassium 150 mg 04/16/20 09:00 Cozaar PO DAILY [facility] Metoprolol Succinate 25 mg 04/15/20 21:00 04/15/20 20:47 Toprol Xl PO 25 mg BID ADONIS Administration Mirtazapine 15 mg 04/15/20 21:00 04/15/20 20:47 Remeron PO 15 mg HS ADONIS Administration Non-Formulary Medication 2 gm 04/15/20 21:00 04/15/20 22:44 Vascepa 1 Gm Capsule PO Not Given BID [facility] Oxybutynin Chloride 5 mg 04/16/20 09:00 Ditropan Xl PO DAILY [facility] Temazepam 15 mg 04/15/20 21:00 04/15/20 20:47 Restoril PO 15 mg HS ADONIS Administration Intake and Output 04/15/20 04/16/20 04/16/20 22:59 06:59 14:59 Output Total 1 1 Balance -1 -1 Output: Urine 1 1 Other: Voiding Method Toilet Toilet # Voids 1 04/15/20 09:24 04/15/20 09:24
--- NOTE | 2020-04-16 14:25 | P.DS ---
Providers Date of admission: 04/15/20 11:45 Expected date of discharge: 04/16/20 Attending physician: Shreyas Narayan Consults: 04/15/20 11:45 Consult Physician Urgent Consulting Provider: [facility] Consult Reason/Comments: Near syncope Do you want consulting provider notified?: Yes Primary care physician: Shreyas Narayan [facility] Hospital Course: Final Diagnoses: Near-vasovagal syncope, possibly secondary to uncontrolled accelerated hypertension ,anxiety,workup in progress Accelerated hypertension Anxiety Chronic depression on Wellbutrin CAD, history of heart catheterization with stent Hyperlipidemia Hypertension Osteoarthritis Seizure disorder with last seizure 25 years ago Hypothyroidism Former smoker Peripheral vascular disease, status post carotid endarterectomy Hospital course:This is an 84-year-old female with history of CAD, cardiac catheterization with stent, hyperlipidemia, hypertension, osteoarthritis, seizure disorder with last seizure reported 25 years ago, thyroid disorder, former smoker multiple other medical issues, presented to the ER with complaints of near syncope. Reports she hasn't felt like herself for nearly a month, "feels tired and sluggish" Patient reports upon awakening yesterday morning felt lightheaded, as if she would possibly pass out, worsened with standing.denies dizziness, no room spinning. Denies diaphoresis post-event. Denies chest pain, palpitations or shortness of breath. Denies fevers, cough or chills. Denies syncope, denies incontinence, denies any fall or trauma. Denies focal deficits, denies headache, denies increased weakness or numbness. Denies any nausea ,vomiting diarrhea or constipation. Denies abdominal pain. Patient also reports having significant anxiety related to Covid pandemic-constantly worried about her daughter who is a respiratory therapist. Denies exertional activity. Reports consistent compliance with medical regimen .On admission patient's blood pressure uncontrolled with systolic blood pressure of 201/113, pulse 76, respiratory rate 18, maintaining O2 sats of high 90s on room air. Blood pressure currently better controlled down to 131/74.Chest x-ray reporting no acute cardiopulmonary process. EKG normal sinus rhythm, troponins negative 1. Hematology/coagulation unremarkable. BUN/creatinine 31/1.08-Baseline AST minimally elevated at 49. Afebrile, normal WBC. Urine reporting rare bacteria, moderately high leukocytes, and ABC's of 6 negative for nitrates. Evaluated by cardiology, Norvasc increased. Echo performed verbally reported as normal. Cleared by cardiology for discharge. Patient is being discharged home in stable condition with guarded prognosis. Please refer to EMR for further details. The impression and plan of care has been dictated as directed. : I performed a history and examination of this patient, discussed the same with the dictator. I agree with the dictator's note ,documented as a scribe. Any additional findings or plans will be noted. Patient Condition at Discharge: Stable Plan - Discharge Summary Discharge Rx Participant: No New Discharge Prescriptions: New Escitalopram [Lexapro] 5 mg PO DAILY #30 tab amLODIPine [Norvasc] 5 mg PO BID #60 tab Continue buPROPion HCL [Wellbutrin XL] 300 mg PO DAILY Metoprolol Succinate (ER) [Toprol XL] 25 mg PO BID Levothyroxine Sodium [Synthroid] 112 mcg PO DAILY Oxybutynin Xl [Ditropan XL] 5 mg PO DAILY Olmesartan/Hydrochlorothiazide [Benicar Hct 40-25 mg Tablet] 1 tab PO DAILY Atorvastatin [Lipitor] 80 mg PO HS Multivit with Calcium,Iron,Min [Women's Daily Multivitamin] 1 tab PO DAILY Ergocalciferol (Vitamin D2) [Drisdol] 50,000 unit PO FR Temazepam [Restoril] 15 mg PO HS Mirtazapine [Remeron] 15 mg PO HS Vascepa 1 Gm Capsule 2 gm PO BID Discontinued amLODIPine [Norvasc] 5 mg PO DAILY Discharge Medication List Atorvastatin [Lipitor] 80 mg PO HS 10/21/15 [History] Levothyroxine Sodium [Synthroid] 112 mcg PO DAILY 10/21/15 [History] Metoprolol Succinate (ER) [Toprol XL] 25 mg PO BID 10/21/15 [History] Multivit with Calcium,Iron,Min [Women's Daily Multivitamin] 1 tab PO DAILY 10/21/15 [History] Olmesartan/Hydrochlorothiazide [Benicar Hct 40-25 mg Tablet] 1 tab PO DAILY 10/21/15 [History] Oxybutynin Xl [Ditropan XL] 5 mg PO DAILY 10/21/15 [History] buPROPion HCL [Wellbutrin XL] 300 mg PO DAILY 10/21/15 [History] Ergocalciferol (Vitamin D2) [Drisdol] 50,000 unit PO FR 04/15/20 [History] Mirtazapine [Remeron] 15 mg PO HS 04/15/20 [History] Temazepam [Restoril] 15 mg PO HS 04/15/20 [History] Vascepa 1 Gm Capsule 2 gm PO BID 04/15/20 [History] Escitalopram [Lexapro] 5 mg PO DAILY #30 tab 04/16/20 [Rx] amLODIPine [Norvasc] 5 mg PO BID #60 tab 04/16/20 [Rx] Follow up Appointment(s)/Referral(s): Kobe Long MD [STAFF PHYSICIAN] - 2 Weeks Shreyas Narayan DO [Primary Care Provider] - 1-2 days
[2020-04-16 14:52] VITALS: BP 155/78; PULSE 74; TEMP 98.3
--- NOTE | 2020-04-17 10:33 | ECHOF ---
Referral Reason:near syncope, htn MEASUREMENTS -------- HEIGHT: 160.0 cm WEIGHT: 68.0 kg BP: 174/75 RVIDd: 2.9 cm (< 3.3) IVSd: 1.1 cm (0.6 - 1.1) LVIDd: 3.8 cm (3.9 - 5.3) LVPWd: 1.4 cm (0.6 - 1.1) IVSs: 1.5 cm LVIDs: 2.6 cm LVPWs: 1.2 cm LA Diam: 3.1 cm (2.7 - 3.8) LAESV Index (A-L): 24.90 ml/m Ao Diam: 3.1 cm (2.0 - 3.7) AV Cusp: 1.7 cm (1.5 - 2.6) MV EXCURSION: 12.451 mm (> 18.000) MV EF SLOPE: 37 mm/s (70 - 150) EPSS: 0.2 cm MV E Isrrael: 0.43 m/s MV DecT: 286 ms MV A Isrrael: 0.92 m/s MV E/A Ratio: 0.47 RAP: 5.00 mmHg RVSP: 26.90 mmHg FINDINGS -------- Sinus rhythm. This was a technically adequate study. The left ventricular size is normal. There is mild concentric left ventricular hypertrophy. Overa ll left ventricular systolic function is normal with, an EF between 55 - 60 %. The right ventricle is normal in size. The left atrial size is normal. Normal LA size by volume 22+/-6 ml/m2. The right atrial size is normal. The aortic valve is trileaflet, and appears structurally normal. No aortic stenosis or regurgitation. Mild mitral regurgitation is present. Mild tricuspid regurgitation present. Right ventricular systolic pressure is normal at < 35 mmHg. Trace/mild (physiologic) pulmonic regurgitation. The aortic root size is normal. There is no pericardial effusion. CONCLUSIONS -------- 1. Sinus rhythm. 2. This was a technically adequate study. 3. The left ventricular size is normal. 4. There is mild concentric left ventricular hypertrophy. 5. Overall left ventricular systolic function is normal with, an EF between 55 - 60 %. 6. The right ventricle is normal in size. 7. The left atrial size is normal. 8. Normal LA size by volume 22+/-6 ml/m2. 9. The right atrial size is normal. 10. Mild mitral regurgitation is present. 11. Mild tricuspid regurgitation present. 12. Right ventricular systolic pressure is normal at < 35 mmHg. 13. Trace/mild (physiologic) pulmonic regurgitation. WEATHERSTRIP MACHINE OPERATOR: Caroline Hernandez RDCS
== END 2020-04-16 15:27 ==
LOC: EC 09:01 → 3NCARDOBS 11:45
PROVIDERS: ADMIT Family Medicine; ATTEND Family Medicine
DX: R55 Syncope and collapse (principal); I10 Essential (primary) hypertension; F41.9 Anxiety disorder, unspecified; I25.10 Atherosclerotic heart disease of native coronary artery without angina pectoris; G40.909 Epilepsy, unspecified, not intractable, without status epilepticus; E78.5 Hyperlipidemia, unspecified; E03.9 Hypothyroidism, unspecified; E16.2 Hypoglycemia, unspecified; F32.9 Major depressive disorder, single episode, unspecified; M19.90 Unspecified osteoarthritis, unspecified site; I65.23 Occlusion and stenosis of bilateral carotid arteries; I73.9 Peripheral vascular disease, unspecified; Z03.818 Encounter for observation for suspected exposure to other biological agents ruled out; Z79.890 Hormone replacement therapy; Z79.899 Other long term (current) drug therapy; Z88.0 Allergy status to penicillin; Z95.5 Presence of coronary angioplasty implant and graft; Z98.891 History of uterine scar from previous surgery; Z96.651 Presence of right artificial knee joint; Z87.891 Personal history of nicotine dependence
CPT/HCPCS: 96361 ×2; 96360; 99285; 36415; 93005; 93306; 80053; 83605; 83735; 84484; 85025; 85610; 85730; 81001; 71046; G0378 ×2; U0003

== ENCOUNTER → 2021-04-08 | Outpatient (CLI) | payer MEDICARE ==
[2021-04-08 20:58] LABS: African American GFR (CKD) 43.9 (60.0-200.0); Anion Gap 10.4 mmol/L (4.00-12.00); Carbon Dioxide 22.6 mmol/L (21.6-31.8); Non-African American GFR(CKD) 37.9 (60.0-200.0); Potassium 4.3 mmol/L (3.5-5.5)
== END | disposition home or self-care (01) ==
LOC: LABWHC1 08:16
PROVIDERS: ATTEND Internal Medicine Interventional Cardiology
DX: I10 Essential (primary) hypertension (principal); R60.0 Localized edema
CPT/HCPCS: 36415; 80051; 82565; 83880; 84520

== ENCOUNTER 2022-06-04 12:27 | Emergency (ER) | payer MEDICARE ==
[2022-06-04 13:08] VITALS: TEMP 97.6
[2022-06-04] MEDS ORDERED: OXYMETAZOLINE 0.05% NASL SPRAY 1 SPRAY BOTTLE NASAL STA (13:48)
[2022-06-04] MEDS ORDERED: SILVER NITRATE APPLICATOR 1 EACH STICK..EA. TOPICAL STA (13:48)
[2022-06-04] MEDS ORDERED: TRANEXAMIC ACID 1,000 MG/10 ML VIAL MISCELLANE ONE (14:00)
--- NOTE | 2022-06-04 14:00 | ED ---
General Adult HPI - General Chief complaint: ENT Stated complaint: nose bleed Time Seen by Provider: 06/04/22 13:39 Source: patient, RN notes reviewed, old records reviewed Mode of arrival: ambulatory Limitations: no limitations - History of Present Illness Initial comments: This is an 87-year-old female presents emergency Department complaining of a no sebleed out of the right naris. Patient states that it started bleeding yesterday and she got up to stop it bled 3 times today so she came to the emergency department. Patient states she does have high blood pressure but she did take her blood pressure medication. Patient states she's not any blood thinners other than aspirin daily. Patient denies any other complaints. - Related Data Home Medications Medication Instructions Recorded Confirmed Atorvastatin [Lipitor] 80 mg PO HS 10/21/15 04/15/20 Levothyroxine Sodium [Synthroid] 112 mcg PO DAILY 10/21/15 04/15/20 Metoprolol Succinate (ER) [Toprol 25 mg PO BID 10/21/15 04/15/20 XL] Multivit with Calcium,Iron,Min 1 tab PO DAILY 10/21/15 04/15/20 [Women's Daily Multivitamin] Olmesartan/Hydrochlorothiazide 1 tab PO DAILY 10/21/15 04/15/20 [Benicar Hct 40-25 mg Tablet] Oxybutynin Xl [Ditropan XL] 5 mg PO DAILY 10/21/15 04/15/20 buPROPion HCL [Wellbutrin XL] 300 mg PO DAILY 10/21/15 04/15/20 Ergocalciferol (Vitamin D2) 50,000 unit PO FR 04/15/20 04/15/20 [Drisdol (50,000 Iu)] Mirtazapine [Remeron] 15 mg PO HS 04/15/20 04/15/20 Temazepam [Restoril] 15 mg PO HS 04/15/20 04/15/20 Vascepa 1 Gm Capsule 2 gm PO BID 04/15/20 04/15/20 Previous Rx's Medication Instructions Recorded Escitalopram [Lexapro] 5 mg PO DAILY #30 tab 04/16/20 amLODIPine [Norvasc] 5 mg PO BID #60 tab 04/16/20 Allergies Allergy/AdvReac Type Severity Reaction Status Date / Time Penicillins Allergy Rash/Hives Verified 06/04/22 13:08 Review of Systems ROS Statement: Those systems with pertinent positive or pertinent negative responses have been documented in the HPI. ROS Other: All systems not noted in ROS Statement are negative. Past Medical History Past Medical History: Coronary Artery Disease (CAD), Hyperlipidemia, Hypertension, Osteoarthritis (OA), Seizure Disorder, Thyroid Disorder Additional Past Medical History / Comment(s): Last seizure 25 yr ago, Hypoglycemic. 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 History of Any Multi-Drug Resistant Organisms: None Reported Past Surgical History: Section, Heart Catheterization With Stent, Joint Replacement Additional Past Surgical History / Comment(s): C/S x 2, right carotid endarterectomy, TOTAL RIGHT KNEE Past Anesthesia/Blood Transfusion Reactions: No Reported Reaction Date of Last Stent Placement:: 2005 Past Psychological History: No Psychological Hx Reported Smoking Status: Former smoker Past Alcohol Use History: None Reported Past Drug Use History: None Reported - Past Family History Mother Family Medical History: No Reported History General Exam - General Exam Comments Initial Comments: GENERAL: Patient is well-developed and well-nourished. Patient is nontoxic and well- hydrated and is in mild distress. ENT: Neck is soft and supple. No significant lymphadenopathy is noted. Oropharynx is clear. Moist mucous membranes. Neck has full range of motion without eliciting any pain. Patient has an anterior nosebleed on the septum of the right ear. EYES: The sclera were anicteric and conjunctiva were pink and moist. Extraocular movements were intact and pupils were equal round and reactive to light. Eyelids were unremarkable. SKIN: Skin is clear with no lesions or rashes and otherwise unremarkable. NEUROLOGIC: Patient is alert and oriented x3. Cranial nerves II through XII are grossly intact. Motor and sensory are also intact. Normal speech, volume and content. Symmetrical smile. MUSCULOSKELETAL: Normal extremities with adequate strength and full range of motion. LYMPHATICS: No significant lymphadenopathy is noted PSYCHIATRIC: Normal psychiatric evaluation. Limitations: no limitations Course Vital Signs 06/04/22 06/04/22 13:04 13:59 Temperature 97.6 F Pulse Rate 73 Respiratory 20 Rate Blood Pressure 153/87 178/83 O2 Sat by Pulse 95 Oximetry Medical Decision Making - Medical Decision Making I cauterized the area that was bleeding on the septum with a silver nitrate stick. That slowed the bleeding down at the [place] spray. In the 90s takes a cotton swab and clamped it for about 20 minutes which stopped the bleeding. Patient has high blood pressure patient taking Catapres. Disposition Clinical Impression: Epistaxis, Hypertension Disposition: HOME SELF-CARE Is patient prescribed a controlled substance at d/c from ED?: No Referrals: Shreyas Narayan DO [Primary Care Provider] - 1-2 days Time of Disposition: 15:01
[2022-06-04] MEDS ORDERED: cloNIDine HCL 0.1 MG TAB PO STA (14:21)
[2022-06-04 15:04] VITALS: BP 132/78; PULSE 98; RESP 18
== END 2022-06-04 15:09 | disposition home or self-care (01) ==
LOC: EC 12:27
DX: R04.0 Epistaxis (principal); I10 Essential (primary) hypertension; E78.5 Hyperlipidemia, unspecified; E07.9 Disorder of thyroid, unspecified; Z79.899 Other long term (current) drug therapy; Z87.891 Personal history of nicotine dependence; Z88.0 Allergy status to penicillin
CPT/HCPCS: 99283